=== PATIENT | male | born 1975 | race Hispanic/Latino ===

== ENCOUNTER 2021-06-24 14:33 | Observation (INO) | payer SELFPAY ==
[2021-06-24 15:01] LABS: #Basophils 0.1 thou/uL (0.0-0.2); #Eosinphils 0.5 thou/uL (0.0-0.7); #Monocytes 0.8 thou/uL (0.11-0.59); #Neutrophils 4.5 thou/uL (1.40-6.50); %Basophils 1.1 % (0.0-1.0); %Eosinophils 5.9 % (0.0-10.0); %Lymphocytes 25.4 % (21.0-51.0); %Monocytes 9.7 % (0.0-10.0); %Neutrophils 57.9 % (42.0-75.0); Mean Corpuscular HGB CONC 31.7 g/dL (32.0-36.0); Mean Corpuscular Volume 85.2 fL (78.0-98.0); Platelet Count 401 thou/uL (130-400); RBC Distribution Width 13.2 % (11.5-14.5); Red Blood Cell (RBC) Count 5.16 mill/uL (4.70-6.10); White Blood Cell (WBC) Count 7.7 thou/uL (4.8-10.8)
[2021-06-24] MEDS ORDERED: Labetalol HCl 100 MG/20 ML VIAL ONE (15:15)
[2021-06-24] MEDS ORDERED: Aspirin Chewable 81 MG TAB ONE (15:15)
[2021-06-24 15:23] LABS: ALT (SGPT) 51 U/L (8-55); AST (SGOT) 28 U/L (5-34); Albumin 3.9 g/dL (3.5-5.0); Alkaline Phosphatase 75 U/L (40-110); Anion Gap 16 mmol/L (10-20); BUN (Urea Nitrogen) 18 mg/dL (8.9-20.6); Bilirubin, Total 0.3 mg/dL (0.2-1.2); Calc. Creatinine Clearance 0 mL/min (70-130); Calcium 9.4 mg/dL (7.8-10.44); Carbon Dioxide 23 mmol/L (22-29); Chloride 103 mmol/L (98-107); Globulin 3.7 g/dL (2.4-3.5); Glucose 130 mg/dL (70-105); Potassium 3.9 mmol/L (3.5-5.1); Protein, Total 7.6 g/dL (6.0-8.3); Sodium 138 mmol/L (136-145)
[2021-06-24] MEDS ORDERED: diphenhydrAMINE 50 MG/ML VIAL ONE (16:01)
[2021-06-24] MEDS ORDERED: Metoclopramide HCl 10 MG/2 ML VIAL ONE (16:01)
[2021-06-24] MEDS ORDERED: Ketorolac Tromethamine 30 MG/ML VIAL ONE (16:01)
[2021-06-24] MEDS ORDERED: hydrALAZINE 20 MG/ML VIAL ONE (16:21)
[2021-06-24] MEDS ORDERED: Senokot S 8.6-50 MG TAB PO PRN (17:13)
[2021-06-24] MEDS ORDERED: Dextrose 5% in Water 1,000 ML IV PRN (17:13)
[2021-06-24] MEDS ORDERED: Dextrose 50% Abboject 50 ML SYRINGE SLOW IVP PRN (17:13)
[2021-06-24] MEDS ORDERED: Guaifenesin DM 100-10/5 ML UDCUP PO PRN (17:13)
[2021-06-24] MEDS ORDERED: HumaLOG 300 UNITS/3 ML VIAL SC PRN (17:13)
[2021-06-24] MEDS ORDERED: Ondansetron PF 4 MG/2 ML Vial IVP PRN (17:13)
[2021-06-24] MEDS ORDERED: Atorvastatin Calcium 40 MG TAB PO SCH (21:00)
[2021-06-24] MEDS: Famotidine 20 MG TAB PO SCH (22:46)
[2021-06-24] MEDS: Acetaminophen 325 MG TAB PO PRN (22:46)
[2021-06-24] MEDS: Gabapentin 300 MG CAP PO SCH (22:46)
[2021-06-24] MEDS: Lisinopril 5 MG TAB PO SCH (22:47)
[2021-06-25 03:55] VITALS: BMI 27.9
[2021-06-25 05:28] LABS: #Basophils 0.1 thou/uL (0.0-0.2); #Eosinphils 0.3 thou/uL (0.0-0.7); #Monocytes 0.6 thou/uL (0.11-0.59); #Neutrophils 3.9 thou/uL (1.40-6.50); %Basophils 0.8 % (0.0-1.0); %Eosinophils 4.1 % (0.0-10.0); %Lymphocytes 29.7 % (21.0-51.0); %Monocytes 9.1 % (0.0-10.0); %Neutrophils 56.4 % (42.0-75.0); Hemoglobin 12.1 g/dL (14.0-18.0); Mean Corpuscular HGB CONC 32.6 g/dL (32.0-36.0); Mean Corpuscular Hemoglobin 27.8 pg (27.0-31.0); Mean Corpuscular Volume 85.4 fL (78.0-98.0); Mean Platelet Volume 7.3 fL (7.4-10.4); Platelet Count 344 thou/uL (130-400); RBC Distribution Width 13.3 % (11.5-14.5); Red Blood Cell (RBC) Count 4.36 mill/uL (4.70-6.10); White Blood Cell (WBC) Count 6.9 thou/uL (4.8-10.8)
[2021-06-25 05:49] LABS: Hemoglobin A1c 9.4 % (4.0-6.0)
[2021-06-25 05:51] LABS: Anion Gap 12 mmol/L (10-20); BUN (Urea Nitrogen) 23 mg/dL (8.9-20.6); Calc. Creatinine Clearance 111 mL/min (70-130); Calcium 8.9 mg/dL (7.8-10.44); Carbon Dioxide 24 mmol/L (22-29); Cardiac Risk 5.1 (Less than 4.5); Chloride 105 mmol/L (98-107); Cholesterol 175 mg/dl (< 200 Desired); Glucose 203 mg/dL (70-105); HDL Cholesterol 34 mg/dL (>60 Neg Risk); LDL Cholesterol, Calculated 106 mg/dL; Potassium 4.1 mmol/L (3.5-5.1); Sodium 137 mmol/L (136-145); Triglycerides 176 mg/dL (Less than 150)
[2021-06-25] MEDS: HumaLOG 300 UNITS/3 ML VIAL SC PRN ×2 (06:49→13:13)
[2021-06-25] MEDS ORDERED: metFORMIN 500 MG TAB PO SCH (08:00)
[2021-06-25] MEDS ORDERED: Aspirin 81 mg Enteric Coated Tablet PO SCH (09:00)
[2021-06-25] MEDS ORDERED: Enoxaparin Sodium 40 MG/0.4 ML SYRINGE SC SCH (09:00)
[2021-06-25] MEDS ORDERED: Metoprolol Tartrate 25 MG TAB PO SCH (09:00)
[2021-06-25] MEDS: Gabapentin 300 MG CAP PO SCH (09:06)
[2021-06-25] MEDS: Acetaminophen 325 MG TAB PO PRN (09:07)
[2021-06-25] MEDS: Lisinopril 5 MG TAB PO SCH (09:08)
[2021-06-25] MEDS: Famotidine 20 MG TAB PO SCH (09:08)
[2021-06-25 12:02] VITALS: TEMP 98.1
[2021-06-25 15:03] VITALS: BP 177/106
[2021-06-25 15:30] LABS: SARS-CoV-2 PCR by NAA Not Detected (NotDetected)
== END 2021-06-25 13:50 | disposition home or self-care (01) ==
LOC: ERS 14:33 → NEURO 17:08
PROVIDERS: ADMIT Internal Medicine; ATTEND Internal Medicine
DX: I16.1 Hypertensive emergency (principal); E11.319 Type 2 diabetes mellitus with unspecified diabetic retinopathy without macular edema; E11.42 Type 2 diabetes mellitus with diabetic polyneuropathy; H33.22 Serous retinal detachment, left eye; H35.62 Retinal hemorrhage, left eye; I08.1 Rheumatic disorders of both mitral and tricuspid valves; I10 Essential (primary) hypertension; K21.9 Gastro-esophageal reflux disease without esophagitis; Z79.4 Long term (current) use of insulin; Z79.84 Long term (current) use of oral hypoglycemic drugs; Z79.899 Other long term (current) drug therapy; Z20.822 Contact with and (suspected) exposure to COVID-19
CPT/HCPCS: 36415; 36416; 70450; 70551; 80048; 80053; 80061; 83036; 84484; 85025; 93005; 93306; 96372; G0378; J0360; J1200; J1650; J1815; J1885; J2765; U0003; U0005